=== PATIENT | male | born 1965 | race Caucasian/White ===

== ENCOUNTER 2018-04-13 16:38 | Inpatient (IN) | payer OTHER ==
[2018-04-13 20:27] VITALS: BMI 23.1
--- NOTE | 2018-04-13 21:01 | HP ---
COWS - Scale Resting Pulse: 0= [place] 80 or Below Sweatin=Flushed/Facial Moisture Restless Observation: 1= Difficult to Sit Still Pupil Size: 0= Normal to Room Light Bone or Joint Aches: 2= Severe Diffuse Aches Runny Nose/ Eye Tearin= Nasal Congestion GI Upset > 30mins: 1= Stomach Cramp Tremor Observation: 2= Slight Tremor Visible Yawning Observation: 1= 1-2x During Session Anxiety or Irritability: 4=Extreme Anxiety Goose Flesh Skin: 0=Smooth Skin COWS Score: 14 CIWA Score - CIWA Score Nausea/Vomitin-Mild Nausea/No Vomiting Muscle Tremors: 3 Anxiety: 2 Agitation: 3 Paroxysmal Sweats: 1-Minimal Palms Moist Orientation: 0-Oriented Tacttile Disturbances: 0-None Auditory Disturbances: 0-None Visual Disturbances: 0-None Headache: 0-None Present CIWA-Ar Total Score: 10 Admission ROS S - HPI Chief Complaint: Heroin withdrawal symptoms Allergies/Adverse Reactions: Allergies Allergy/AdvReac Type Severity Reaction Status Date / Time No Known Allergies Allergy Verified 04/13/18 20:29 History of Present Illness: 52 years old male with 3 years history of heroin dependence is seeking admission to detox. Patient reports that this is his first admission to [facility]. He reports 8 months of sobriety. Patient has medical history of depression and anxiety. He deenies suicide attempt and suicidal ideation at this time. Exam Limitations: No Limitations - Ebola screening Have you traveled outside of the country in the last 21 days: No (N) Have you had contact with anyone from an Ebola affected area: No Have you been sick,other than usual withdrawal symptoms: No Do you have a fever: No - Review of Systems Constitutional: Chills, Loss of Appetite, Malaise, Night Sweats, Changes in sleep EENT: reports: Nose Congestion Respiratory: reports: No Symptoms reported Cardiac: reports: No Symptoms Reported GI: reports: Poor Appetite, Poor Fluid Intake, Abdominal cramping : reports: No Symptoms Reported Musculoskeletal: reports: Back Pain, Joint Pain, Muscle Pain, Muscle Weakness Integumentary: reports: Dryness Neuro: reports: Tremors Endocrine: reports: No Symptoms Reported Psychiatric: reports: Mood/Affect Appropiate, Orientated x3 Other Systems: Reviewed and Negative Patient History - Patient Medical History Hx Anemia: No Hx Asthma: No Hx Chronic Obstructive Pulmonary Disease (COPD): No Hx Cancer: No Hx Cardiac Disorders: No Hx Congestive Heart Failure: No Hx Hypertension: No Hx Hypercholesterolemia: No Hx Pacemaker: No HX Cerebrovascular Accident: No Hx Seizures: No Hx Diabetes: No Hx Gastrointestinal Disorders: No Hx Sexually Transmitted Disorders: No Hx Renal Disease (ESRD): No Hx Thyroid Disease: No Hx Human Immunodeficiency Virus (HIV): No (Negative 2018) Hx Hepatitis C: No Hx Depression: Yes Hx Suicide Attempt: No (Denies suicide cattempt and suicidal ideation at this time) Hx Bipolar Disorder: Yes (Zanax, Seroquel, ) Hx Schizophrenia: No Other Medical History: Anxiety - Not on medication - Patient Surgical History Past Surgical History: No - PPD History Previous Implant?: No Documented Results: Negative w/proof Implanted On Prior [facility] Admission?: No - Reproductive History Patient is a Female of Child Bearing Age (11 -55 yrs old): No (MALE) - Smoking Cessation Smoking history: Current every day smoker Have you smoked in the past 12 months: Yes Aproximately how many cigarettes per day: 20 Hx Chewing Tobacco Use: No Initiated information on smoking cessation: Yes 'Breaking Loose' booklet given: 04/13/18 - Substance & Tx. History Hx Alcohol Use: No Hx Substance Use: Yes Substance Use Type: Heroin, Marijuana Hx Substance Use Treatment: No - Substances Abused Heroin Route: Injection Frequency: Daily Amount used: 1 BUNDLE Age of first use: 49 Date of Last Use: 04/13/18 Family Disease History - Family Disease History Family Disease History: CA: Father (Stomach Ca) Admission Physical Exam S - Vital Signs Vital Signs: Vital Signs - 24 hr 04/13/18 19:27 Temperature 97.0 F L Pulse Rate 60 Respiratory 18 Rate Blood Pressure 150/72 - Physical General Appearance: Yes: Moderate Distress, Tremorous, Irritable, Sweating, Anxious HEENTM: Yes: EOMI, Normal ENT Inspection, Normal Voice, LORI Respiratory: Yes: Lungs Clear, Normal Breath Sounds, No Respiratory Distress Neck: Yes: Supple Breast: Yes: Breast Exam Deferred Cardiology: Yes: Regular Rhythm, Regular Rate Abdominal: Yes: Normal Bowel Sounds Genitourinary: Yes: Within Normal Limits Back: Yes: Normal Inspection Musculoskeletal: Yes: Back pain, Muscle Pain, Muscle weakness Extremities: Yes: Tremors Neurological: Yes: Normal Mood/Affect Integumentary: Yes: Warm Lymphatic: Yes: Within Normal Limits - Diagnostic (1) Opioid dependence with withdrawal Current Visit: Yes Status: Chronic (2) Anxiety Current Visit: Yes Status: Chronic (3) Depression Current Visit: Yes Status: Chronic Qualifiers: Depression Type: unspecified Qualified Code(s): F32.9 - Major depressive disorder, single episode, unspecified (4) Nicotine dependence Current Visit: Yes Status: Chronic Cleared for Admission [facility] - Detox or Rehab [facility] Level of Care: Medically Managed Detox Regimen/Protocol: Methadone/Valium [facility] Breath Alcohol Content Breath Alcohol Content: 0 Urine Drug Screen - Results Drug Screen Negative: No Urine Drug Screen Results: THC-Marijuana, OPI-Opiates, BAR-Barbiturates, BZO- Benzodiazepines, OXY-Oxycodone, FEN-Fentanyl
[2018-04-13] MEDS ORDERED: NICOTINE POLACRILEX 2 MG GUM BC PRN (21:10)
[2018-04-13] MEDS ORDERED: MENTHOL/PHENOL 1 EACH UD MM PRN (21:10)
[2018-04-13] MEDS ORDERED: MAG HYDROX/AL HYDROX/SIMETH 30 ML UNIT-DOSE CUP PO PRN (21:10)
[2018-04-13] MEDS ORDERED: METHADONE HCL 10 MG TABLET (FOR DETOX USE ONLY) PO ONE ×4 (21:10→23:00)
[2018-04-13] MEDS ORDERED: MAGNESIUM HYDROX 2400MG/30ML ORAL SUSPENSION 30 ML CUP PO PRN (21:10)
[2018-04-13] MEDS ORDERED: guaiFENesin/D-METHORPHAN HB 10 ML UNIT-DOSE CUPS PO PRN (21:10)
[2018-04-13] MEDS ORDERED: ACETAMINOPHEN 325 MG TABLET (FP) PO PRN (21:10)
[2018-04-13] MEDS ORDERED: LOPERAMIDE HCL 2 MG CAPSULE PO PRN (21:10)
[2018-04-13] MEDS ORDERED: MAGNESIUM CITRATE 300 ML BOTTLE PO PRN (21:10)
[2018-04-13] MEDS ORDERED: diazePAM 5 MG TABLET PO PRN (21:22)
[2018-04-13] MEDS ORDERED: diazePAM 5 MG TABLET PO ONE (21:22)
[2018-04-13] MEDS ORDERED: MELATONIN 5 MG TABLETS PO PRN (22:00)
[2018-04-13] MEDS: THIAMINE HCL 100 MG TABLET (FP) PO SCH (23:20)
[2018-04-13] MEDS: diazePAM 5 MG TABLET PO SCH (23:27)
[2018-04-14] MEDS: diazePAM 5 MG TABLET PO SCH ×3 (07:00→22:07)
[2018-04-14] MEDS ORDERED: METHADONE HCL 10 MG TABLET (FOR DETOX USE ONLY) PO SCH (10:00)
[2018-04-14] MEDS ORDERED: METHADONE HCL 10 MG TABLET (FOR DETOX USE ONLY) PO ONE (10:00)
[2018-04-14] MEDS: diazePAM 5 MG TABLET PO PRN ×2 (10:34→17:42)
[2018-04-14] MEDS: PRENATAL VITAMINS W/ FOLIC ACID TABLET (FP) PO SCH (10:34)
[2018-04-14] MEDS: NICOTINE 14 MG/24 HOURS TOPICAL PATCH TD SCH (10:35)
[2018-04-14 10:47] LABS: HEMATOCRIT 39.3 % (35.4-49); HEMOGLOBIN 12.1 GM/dL (11.7-16.9); MCH 21.8 pg (25.7-33.7); MCHC 30.8 g/dl (32.0-35.9); MEAN CELL VOLUME 70.7 fl (80-96); MEAN PLT VOLUME 8.8 fl (7.5-11.1); PLATELET COUNT 274 K/MM3 (134-434); RBC 5.56 M/mm3 (4.00-5.60); RDW 15.4 % (11.9-15.9); WHITE BLOOD COUNT 11.9 K/mm3 (4.0-10.0)
--- NOTE | 2018-04-14 10:59 | EKG ---
Test Reason : Blood Pressure : / mmHG Vent. Rate : 061 BPM Atrial Rate : 061 BPM P-R Int : 136 ms QRS Dur : 088 ms QT Int : 428 ms P-R-T Axes : 077 078 057 degrees QTc Int : 430 ms NORMAL SINUS RHYTHM NORMAL ECG NO PREVIOUS ECGS AVAILABLE Confirmed by MD ALY, CAROL ([id number]) on 04/14/2018 10:59:36 AM Referred By: Confirmed By:CAROL LU MD
[2018-04-14 11:37] LABS: ALBUMIN 3.2 g/dl (3.4-5.0); ALK PHOS 89 U/L (45-117); ANION GAP 12 MMOL/L (8-16); BILIRUBIN,TOTAL 0.4 mg/dL (0.2-1); BLOOD UREA NITROGEN 15 mg/dL (7-18); CALCIUM 9.3 mg/dL (8.5-10.1); CHLORIDE 104 mmol/L (98-107); CO2 23 mmol/L (21-32); CREATININE 0.8 mg/dL (0.55-1.3); GLUCOSE,RANDOM 92 mg/dL (74-106); POTASSIUM 3.9 mmol/L (3.5-5.1); SGOT/AST 16 U/L (15-37); SGPT/ALT 20 U/L (13-61); SODIUM 139 mmol/L (136-145); TOT PROT 7.8 g/dl (6.4-8.2)
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
--- NOTE | 2018-04-14 17:23 | PN ---
[facility] CIWA - CIWA Score Nausea/Vomitin-Mild Nausea/No Vomiting Muscle Tremors: 3 Anxiety: 4-Mod. Anxious/Guarded Agitation: 3 Paroxysmal Sweats: 1-Minimal Palms Moist Orientation: 0-Oriented Tacttile Disturbances: 0-None Auditory Disturbances: 0-None Visual Disturbances: 0-None Headache: 0-None Present CIWA-Ar Total Score: 12 [facility] COWS - Scale Resting Pulse: 0= [place] 80 or Below Sweatin= Chills/Flushing Restless Observation: 1= Difficult to Sit Still Pupil Size: 0= Normal to Room Light Bone or Joint Aches: 2= Severe Diffuse Aches Runny Nose/ Eye Tearin= Nasal Congestion GI Upset > 30mins: 2= Nausea/Diarrhea Tremor Observation of Outstretched Hands: 2= Slight Tremor Visible Yawning Observation: 1= 1-2x During Session Anxiety or Irritability: 2=Irritable/Anxious Goose Flesh Skin: 0=Smooth Skin COWS Score: 12 [facility] Progress Note (SOAP) Subjective: body ache tremor trouble sleep at night anxiety Objective: 04/14/18 17:23 Vital Signs Temperature 97.7 F 04/14/18 12:56 Pulse Rate 58 L 04/14/18 12:56 Respiratory Rate 18 04/14/18 12:56 Blood Pressure 140/84 04/14/18 12:56 O2 Sat by Pulse Oximetry (%) Laboratory Last Values WBC 11.9 K/mm3 (4.0-10.0) H 04/14/18 07:00 RBC 5.56 M/mm3 (4.00-5.60) 04/14/18 07:00 Hgb 12.1 GM/dL (11.7-16.9) 04/14/18 07:00 Hct 39.3 % (35.4-49) 04/14/18 07:00 MCV 70.7 fl (80-96) L 04/14/18 07:00 MCH 21.8 pg (25.7-33.7) L 04/14/18 07:00 MCHC 30.8 g/dl (32.0-35.9) L 04/14/18 07:00 RDW 15.4 % (11.9-15.9) 04/14/18 07:00 Plt Count 274 K/MM3 (134-434) 04/14/18 07:00 MPV 8.8 fl (7.5-11.1) 04/14/18 07:00 Sodium 139 mmol/L (136-145) 04/14/18 07:00 Potassium 3.9 mmol/L (3.5-5.1) 04/14/18 07:00 Chloride 104 mmol/L (98-107) 04/14/18 07:00 Carbon Dioxide 23 mmol/L (21-32) 04/14/18 07:00 Anion Gap 12 MMOL/L (8-16) 04/14/18 07:00 BUN 15 mg/dL (7-18) 04/14/18 07:00 Creatinine 0.8 mg/dL (0.55-1.3) 04/14/18 07:00 Creat Clearance w eGFR > 60 (>60) 04/14/18 07:00 Random Glucose 92 mg/dL (74-106) 04/14/18 07:00 Calcium 9.3 mg/dL (8.5-10.1) 04/14/18 07:00 Total Bilirubin 0.4 mg/dL (0.2-1) 04/14/18 07:00 AST 16 U/L (15-37) 04/14/18 07:00 ALT 20 U/L (13-61) 04/14/18 07:00 Alkaline Phosphatase 89 U/L (45-117) 04/14/18 07:00 Total Protein 7.8 g/dl (6.4-8.2) 04/14/18 07:00 Albumin 3.2 g/dl (3.4-5.0) L 04/14/18 07:00 RPR Titer Nonreactive (NONREACTIVE) 04/14/18 07:00 lab note Assessment: 04/14/18 17:23 withdrawal sx Plan: continue detox
[2018-04-14] MEDS ORDERED: QUEtiapine FUMARATE 200 MG TABLET PO SCH (22:00)
[2018-04-14] MEDS ORDERED: QUEtiapine FUMARATE 50 MG TABLET PO SCH (22:00)
[2018-04-14] MEDS: THIAMINE HCL 100 MG TABLET (FP) PO SCH (22:07)
[2018-04-15] MEDS: diazePAM 5 MG TABLET PO PRN ×2 (06:23→14:30)
[2018-04-15] MEDS ORDERED: METHADONE HCL 5 MG TABLET (FOR DETOX USE ONLY) PO ONE (10:00)
[2018-04-15] MEDS: METHADONE HCL 5 MG TABLET (FOR DETOX USE ONLY) PO SCH (10:16)
[2018-04-15] MEDS: diazePAM 5 MG TABLET PO SCH ×2 (10:16→22:07)
[2018-04-15] MEDS: PRENATAL VITAMINS W/ FOLIC ACID TABLET (FP) PO SCH (10:17)
[2018-04-15] MEDS: NICOTINE 14 MG/24 HOURS TOPICAL PATCH TD SCH (10:17)
--- NOTE | 2018-04-15 11:52 | PN ---
[facility] CIWA - CIWA Score Nausea/Vomitin-Mild Nausea/No Vomiting Muscle Tremors: 3 Anxiety: 4-Mod. Anxious/Guarded Agitation: 3 Paroxysmal Sweats: 1-Minimal Palms Moist Orientation: 0-Oriented Tacttile Disturbances: 0-None Auditory Disturbances: 0-None Visual Disturbances: 0-None Headache: 0-None Present CIWA-Ar Total Score: 12 S COWS - Scale Resting Pulse: 0= [place] 80 or Below Sweatin= Chills/Flushing Restless Observation: 1= Difficult to Sit Still Pupil Size: 0= Normal to Room Light Bone or Joint Aches: 2= Severe Diffuse Aches Runny Nose/ Eye Tearin= Nasal Congestion GI Upset > 30mins: 2= Nausea/Diarrhea Tremor Observation of Outstretched Hands: 1= Tremor [place], Not Seen Yawning Observation: 1= 1-2x During Session Anxiety or Irritability: 2=Irritable/Anxious Goose Flesh Skin: 0=Smooth Skin COWS Score: 11 [facility] Progress Note (SOAP) Subjective: sweat tremor hot and cold body aches trouble sleep at night Objective: 04/15/18 11:53 Vital Signs Temperature 97.9 F 04/15/18 09:27 Pulse Rate 57 L 04/15/18 09:27 Respiratory Rate 16 04/15/18 09:27 Blood Pressure 103/55 L 04/15/18 09:27 O2 Sat by Pulse Oximetry (%) Laboratory Last Values WBC 11.9 K/mm3 (4.0-10.0) H 04/14/18 07:00 RBC 5.56 M/mm3 (4.00-5.60) 04/14/18 07:00 Hgb 12.1 GM/dL (11.7-16.9) 04/14/18 07:00 Hct 39.3 % (35.4-49) 04/14/18 07:00 MCV 70.7 fl (80-96) L 04/14/18 07:00 MCH 21.8 pg (25.7-33.7) L 04/14/18 07:00 MCHC 30.8 g/dl (32.0-35.9) L 04/14/18 07:00 RDW 15.4 % (11.9-15.9) 04/14/18 07:00 Plt Count 274 K/MM3 (134-434) 04/14/18 07:00 MPV 8.8 fl (7.5-11.1) 04/14/18 07:00 Sodium 139 mmol/L (136-145) 04/14/18 07:00 Potassium 3.9 mmol/L (3.5-5.1) 04/14/18 07:00 Chloride 104 mmol/L (98-107) 04/14/18 07:00 Carbon Dioxide 23 mmol/L (21-32) 04/14/18 07:00 Anion Gap 12 MMOL/L (8-16) 04/14/18 07:00 BUN 15 mg/dL (7-18) 04/14/18 07:00 Creatinine 0.8 mg/dL (0.55-1.3) 04/14/18 07:00 Creat Clearance w eGFR > 60 (>60) 04/14/18 07:00 Random Glucose 92 mg/dL (74-106) 04/14/18 07:00 Calcium 9.3 mg/dL (8.5-10.1) 04/14/18 07:00 Total Bilirubin 0.4 mg/dL (0.2-1) 04/14/18 07:00 AST 16 U/L (15-37) 04/14/18 07:00 ALT 20 U/L (13-61) 04/14/18 07:00 Alkaline Phosphatase 89 U/L (45-117) 04/14/18 07:00 Total Protein 7.8 g/dl (6.4-8.2) 04/14/18 07:00 Albumin 3.2 g/dl (3.4-5.0) L 04/14/18 07:00 RPR Titer Nonreactive (NONREACTIVE) 04/14/18 07:00 lab noted Assessment: 04/15/18 11:54 alcohol and opiate withdrawal sx Plan: continue alcohol and opiate detox
[2018-04-15] MEDS: P-EPHED 60MG/TRIPROLIDI 2.5MG TABLET PO PRN ×2 (14:30→22:11)
[2018-04-15] MEDS: IBUPROFEN 400 MG TABLET (FP) PO PRN ×2 (14:33→22:11)
--- NOTE | 2018-04-15 15:40 | PN ---
[facility] Progress Note Note: Psychiatric nurse practitioner note: Patient able to accept seroquel 150mg last night. He is currently prescribed Seroquel 300mg qhs. No complaints of adverse effects. No dizziness or oversedated noted. Mr. Devine continues to reports poor sleep. Will increase seroquel to 200mg qhs. Verbal consent given.
[2018-04-15] MEDS ORDERED: QUEtiapine FUMARATE 200 MG TABLET PO SCH (22:00)
[2018-04-15] MEDS: THIAMINE HCL 100 MG TABLET (FP) PO SCH (22:07)
[2018-04-16] MEDS ORDERED: METHADONE HCL 5 MG TABLET (FOR DETOX USE ONLY) PO ONE (10:00)
[2018-04-16] MEDS: NICOTINE 14 MG/24 HOURS TOPICAL PATCH TD SCH (10:31)
[2018-04-16] MEDS: PRENATAL VITAMINS W/ FOLIC ACID TABLET (FP) PO SCH (10:31)
[2018-04-16] MEDS: diazePAM 5 MG TABLET PO SCH ×2 (10:31→22:09)
[2018-04-16] MEDS: METHADONE HCL 5 MG TABLET (FOR DETOX USE ONLY) PO SCH (10:31)
[2018-04-16] MEDS: IBUPROFEN 400 MG TABLET (FP) PO PRN (10:32)
--- NOTE | 2018-04-16 13:15 | PN ---
[facility] COWS - Scale Resting Pulse: 0= [place] 80 or Below Sweatin= No chills or Flushing Restless Observation: 0= Sits Still Pupil Size: 1= Pupils >than Normal Bone or Joint Aches: 0= None Runny Nose/ Eye Tearin= None GI Upset > 30mins: 0= None Tremor Observation of Outstretched Hands: 0= None Yawning Observation: 0= None Anxiety or Irritability: 0= None Goose Flesh Skin: 0=Smooth Skin COWS Score: 1 [facility] Progress Note (SOAP) Subjective: Patient tolerating detox well. In no acute distress. Objective: 04/16/18 13:12 Laboratory Tests 04/14/18 04/14/18 04/14/18 07:00 07:00 07:00 WBC 11.9 H RBC 5.56 Hgb 12.1 Hct 39.3 MCV 70.7 L MCH 21.8 L MCHC 30.8 L RDW 15.4 Plt Count 274 MPV 8.8 Sodium 139 Potassium 3.9 Chloride 104 Carbon Dioxide 23 Anion Gap 12 BUN 15 Creatinine 0.8 Creat Clearance w eGFR > 60 Random Glucose 92 Calcium 9.3 Total Bilirubin 0.4 AST 16 ALT 20 Alkaline Phosphatase 89 Total Protein 7.8 Albumin 3.2 L RPR Titer Nonreactive Vital Signs Temperature 97.9 F 04/16/18 08:59 Pulse Rate 53 L 04/16/18 08:59 Respiratory Rate 18 04/16/18 08:59 Blood Pressure 102/57 L 04/16/18 08:59 O2 Sat by Pulse Oximetry (%) pe: alert and oriented skin warm and dry car s1s2 resp cta bl neuro +PERRLA, pupils slightly enlarged, eoms intact bl Assessment: 04/16/18 13:14 withdrawal syndrome Plan: continue detox as ordered encourage oral fluids continue to monitor
[2018-04-16] MEDS: diazePAM 5 MG TABLET PO PRN (14:50)
[2018-04-16] MEDS: LIDOCAINE 5% TOPICAL PATCH TP SCH (14:54)
[2018-04-16] MEDS: P-EPHED 60MG/TRIPROLIDI 2.5MG TABLET PO PRN (15:04)
--- NOTE | 2018-04-16 16:29 | PN ---
[facility] Progress Note Note: Psychiatric nurse practitioner note: Chart reviewed. Pt. is prescribed seroquel 300mg qhs by his outpatient provider. He accepted seroquel 200 mg last night. No adverse effects reports. Patient is c/o poor sleep. Seroquel increased to 250mg. Verbal consent given.
[2018-04-16] MEDS ORDERED: QUEtiapine FUMARATE 200 MG TABLET ONE (21:15)
[2018-04-16] MEDS ORDERED: QUEtiapine FUMARATE 50 MG TABLET ONE (21:15)
[2018-04-16] MEDS ORDERED: QUEtiapine FUMARATE 200 MG TABLET PO SCH (22:00)
[2018-04-16] MEDS ORDERED: QUETIAPINE FUMARATE 200 MG, QUETIAPINE FUMARATE 50 MG PO SCH (22:00)
[2018-04-16] MEDS ORDERED: LIDOCAINE PATCH REMOVAL MC SCH (22:00)
[2018-04-16] MEDS: THIAMINE HCL 100 MG TABLET (FP) PO SCH (22:10)
[2018-04-17 05:48] VITALS: TEMP 97.3
[2018-04-17 09:14] VITALS: BP 98/55; PULSE 61
[2018-04-17] MEDS: PRENATAL VITAMINS W/ FOLIC ACID TABLET (FP) PO SCH (09:36)
[2018-04-17] MEDS: LIDOCAINE 5% TOPICAL PATCH TP SCH (09:37)
[2018-04-17] MEDS: NICOTINE 14 MG/24 HOURS TOPICAL PATCH TD SCH (09:38)
[2018-04-17] MEDS ORDERED: diazePAM 5 MG TABLET PO SCH (10:00)
[2018-04-17] MEDS ORDERED: METHADONE HCL 10 MG TABLET (FOR DETOX USE ONLY) PO SCH (10:00)
[2018-04-17] MEDS ORDERED: METHADONE HCL 10 MG TABLET (FOR DETOX USE ONLY) PO ONE (10:00)
--- NOTE | 2018-04-17 10:09 | PN ---
S Progress Note Note: pt states he is feeling fine and no s/s withdrawals. pt will be d/c today pt will be going home.
--- NOTE | 2018-04-17 10:12 | DS ---
[facility] Detox Discharge Summary Admission Date: 04/13/18 Discharge Date: 04/17/18 - History Present History: Opioid Dependence - Physical Exam Results Vital Signs: Vital Signs Temperature 97.3 F L 04/17/18 09:14 Pulse Rate 61 04/17/18 09:14 Respiratory Rate 04/17/18 09:14 Blood Pressure 98/55 L 04/17/18 09:14 O2 Sat by Pulse Oximetry (%) - Treatment Hospital Course: Detox Protocol Followed, Detoxed Safely, Responded well, Discharged Condition Good, Rehab Referral Accepted - Medication Discharge Medications: Ambulatory Orders Alprazolam [Xanax] 1 mg PO PRN 04/13/18 Pregabalin [Lyrica] 100 mg PO TID 04/13/18 Quetiapine Fumarate [Seroquel] 300 mg PO HS 04/13/18 - Diagnosis (1) Opioid dependence with withdrawal Current Visit: Yes Status: Chronic (2) Substance induced mood disorder Current Visit: Yes Status: Acute (3) Anxiety Current Visit: Yes Status: Chronic (4) Depression Current Visit: Yes Status: Chronic Qualifiers: Depression Type: unspecified Qualified Code(s): F32.9 - Major depressive disorder, single episode, unspecified (5) Mood disorder Current Visit: Yes Status: Chronic (6) Nicotine dependence Current Visit: Yes Status: Chronic Qualifiers: Nicotine product type: cigarettes Substance use status: uncomplicated Qualified Code(s): F17.210 - Nicotine dependence, cigarettes, uncomplicated (7) PTSD (post-traumatic stress disorder) Current Visit: Yes Status: Chronic - AMA Did Patient Leave Against Medical Advice: No
[2018-04-18] MEDS ORDERED: METHADONE HCL 5 MG TABLET (FOR DETOX USE ONLY) PO ONE (06:00)
[2018-04-18] MEDS ORDERED: METHADONE HCL 5 MG TABLET (FOR DETOX USE ONLY) PO SCH (06:00)
== END 2018-04-17 10:11 | disposition home or self-care (01) | DRG 773 ==
LOC: YASAS 16:38 → Y6N 21:26
PROC: HZ2ZZZZ Detoxification Services for Substance Abuse Treatment (ICD-10-PCS; principal; 2018-04-13)
DX: F11.23 Opioid dependence with withdrawal (principal); F10.230 Alcohol dependence with withdrawal, uncomplicated; F17.210 Nicotine dependence, cigarettes, uncomplicated; F31.9 Bipolar disorder, unspecified; F19.24 Other psychoactive substance dependence with psychoactive substance-induced mood disorder; F39 Unspecified mood [affective] disorder; F32.9 Major depressive disorder, single episode, unspecified; F43.10 Post-traumatic stress disorder, unspecified; F41.9 Anxiety disorder, unspecified
CPT/HCPCS: 36415; 80053; 85027; 86593; 93005; 93010

== ENCOUNTER 2018-06-01 16:16 | Inpatient (IN) | payer OTHER ==
[2018-06-01 17:41] VITALS: BMI 23.7
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
[2018-06-01] MEDS ORDERED: IBUPROFEN 400 MG TABLET (FP) PO PRN (18:34)
[2018-06-01] MEDS ORDERED: P-EPHED 60MG/TRIPROLIDI 2.5MG TABLET PO PRN (18:34)
[2018-06-01] MEDS ORDERED: MAGNESIUM CITRATE 300 ML BOTTLE PO PRN (18:34)
[2018-06-01] MEDS ORDERED: MAGNESIUM HYDROX 2400MG/30ML ORAL SUSPENSION 30 ML CUP PO PRN (18:34)
[2018-06-01] MEDS ORDERED: MENTHOL/PHENOL 1 EACH UD MM PRN (18:34)
[2018-06-01] MEDS ORDERED: guaiFENesin/D-METHORPHAN HB 10 ML UNIT-DOSE CUPS PO PRN (18:34)
[2018-06-01] MEDS ORDERED: MAG HYDROX/AL HYDROX/SIMETH 30 ML UNIT-DOSE CUP PO PRN (18:34)
[2018-06-01] MEDS ORDERED: ACETAMINOPHEN 325 MG TABLET (FP) PO PRN (18:34)
[2018-06-01] MEDS ORDERED: METHADONE HCL 10 MG TABLET (FOR DETOX USE ONLY) PO ONE ×2 (19:00→23:00)
[2018-06-01] MEDS: diazePAM 5 MG TABLET PO PRN (19:42)
[2018-06-01] MEDS ORDERED: MELATONIN 5 MG TABLETS PO PRN (22:00)
[2018-06-01] MEDS: THIAMINE HCL 100 MG TABLET (FP) PO SCH (22:07)
[2018-06-02] MEDS: diazePAM 5 MG TABLET PO PRN ×5 (05:30→23:00)
[2018-06-02] MEDS ORDERED: cloNIDine HCL 0.1 MG TABLET PO ONE (09:15)
[2018-06-02] MEDS ORDERED: BACLOFEN 10 MG TABLET (FP) PO ONE (09:15)
[2018-06-02 09:46] LABS: HEMOGLOBIN 12.5 GM/dL (11.7-16.9); MCH 21.4 pg (25.7-33.7); MCHC 30.5 g/dl (32.0-35.9); MEAN CELL VOLUME 70.1 fl (80-96); MEAN PLT VOLUME 8.5 fl (7.5-11.1); PLATELET COUNT 285 K/MM3 (134-434); RBC 5.85 M/mm3 (4.00-5.60); WHITE BLOOD COUNT 10.6 K/mm3 (4.0-10.0)
--- NOTE | 2018-06-02 09:55 | PN ---
S COWS - Scale Resting Pulse: 0= OR 80 or Below Sweatin= Chills/Flushing Restless Observation: 1= Difficult to Sit Still Pupil Size: 1= Pupils >than Normal Bone or Joint Aches: 1= Mild Discomfort Runny Nose/ Eye Tearin= Nasal Congestion GI Upset > 30mins: 1= Stomach Cramp Tremor Observation of Outstretched Hands: 1= Tremor [place], Not Seen Yawning Observation: 1= 1-2x During Session Anxiety or Irritability: 1=Feels Anxious/Irritable Goose Flesh Skin: 3=Piloerection COWS Score: 12 S Progress Note (SOAP) Subjective: joints pain body aches sweat tremor anxiety restlessness patient taking xanax three times daily received 30 days supply 05/29/18 Objective: 06/02/18 10:00 Vital Signs Temperature 98.2 F 06/02/18 09:06 Pulse Rate 55 L 06/02/18 09:06 Respiratory Rate 18 06/02/18 09:06 Blood Pressure 122/61 06/02/18 09:06 O2 Sat by Pulse Oximetry (%) Laboratory Last Values WBC 10.6 K/mm3 (4.0-10.0) H 06/02/18 07:00 RBC 5.85 M/mm3 (4.00-5.60) H 06/02/18 07:00 Hgb 12.5 GM/dL (11.7-16.9) 06/02/18 07:00 Hct 41.0 % (35.4-49) 06/02/18 07:00 MCV 70.1 fl (80-96) L 06/02/18 07:00 MCH 21.4 pg (25.7-33.7) L 06/02/18 07:00 MCHC 30.5 g/dl (32.0-35.9) L 06/02/18 07:00 RDW 16.0 % (11.9-15.9) H 06/02/18 07:00 Plt Count 285 K/MM3 (134-434) 06/02/18 07:00 MPV 8.5 fl (7.5-11.1) 06/02/18 07:00 Sodium 140 mmol/L (136-145) 06/02/18 07:00 Potassium 4.2 mmol/L (3.5-5.1) 06/02/18 07:00 Chloride 104 mmol/L (98-107) 06/02/18 07:00 Carbon Dioxide 25 mmol/L (21-32) 06/02/18 07:00 Anion Gap 10 MMOL/L (8-16) 06/02/18 07:00 BUN 14 mg/dL (7-18) 06/02/18 07:00 Creatinine 0.8 mg/dL (0.55-1.3) 06/02/18 07:00 Creat Clearance w eGFR > 60 (>60) 06/02/18 07:00 Random Glucose 86 mg/dL (74-106) 06/02/18 07:00 Calcium 8.8 mg/dL (8.5-10.1) 06/02/18 07:00 Total Bilirubin 0.5 mg/dL (0.2-1) 06/02/18 07:00 AST 10 U/L (15-37) L 06/02/18 07:00 ALT 19 U/L (13-61) 06/02/18 07:00 Alkaline Phosphatase 95 U/L (45-117) 06/02/18 07:00 Total Protein 7.6 g/dl (6.4-8.2) 06/02/18 07:00 Albumin 3.2 g/dl (3.4-5.0) L 06/02/18 07:00 lab noted Assessment: 06/02/18 10:00 withdrawal sx muscle aches Plan: continue detox baclofen 10 mg x 1 clonidine 0.1 mg x 1
[2018-06-02 09:59] LABS: ALBUMIN 3.2 g/dl (3.4-5.0); ALK PHOS 95 U/L (45-117); ANION GAP 10 MMOL/L (8-16); BILIRUBIN,TOTAL 0.5 mg/dL (0.2-1); BLOOD UREA NITROGEN 14 mg/dL (7-18); CALCIUM 8.8 mg/dL (8.5-10.1); CHLORIDE 104 mmol/L (98-107); CO2 25 mmol/L (21-32); CREATININE 0.8 mg/dL (0.55-1.3); GLUCOSE,RANDOM 86 mg/dL (74-106); POTASSIUM 4.2 mmol/L (3.5-5.1); SGOT/AST 10 U/L (15-37); SGPT/ALT 19 U/L (13-61); SODIUM 140 mmol/L (136-145); TOT PROT 7.6 g/dl (6.4-8.2)
[2018-06-02] MEDS ORDERED: METHADONE HCL 10 MG TABLET (FOR DETOX USE ONLY) PO ONE (10:00)
[2018-06-02] MEDS: PRENATAL VITAMINS W/ FOLIC ACID TABLET (FP) PO SCH (10:19)
[2018-06-02] MEDS: NICOTINE 7 MG/24 HOURS TOPICAL PATCH TD SCH (10:19)
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
[2018-06-02] MEDS: QUEtiapine FUMARATE 300 MG TABLET PO SCH (21:18)
[2018-06-02] MEDS: THIAMINE HCL 100 MG TABLET (FP) PO SCH (21:18)
--- NOTE | 2018-06-03 09:01 | PN ---
BHS COWS - Scale Resting Pulse: 0= [place] 80 or Below Sweatin= No chills or Flushing (pt on methadone) Restless Observation: 0= Sits Still Pupil Size: 0= Normal to Room Light Bone or Joint Aches: 0= None Runny Nose/ Eye Tearin= None GI Upset > 30mins: 0= None Tremor Observation of Outstretched Hands: 0= None Yawning Observation: 0= None Anxiety or Irritability: 0= None Goose Flesh Skin: 0=Smooth Skin COWS Score: 0 BHS Progress Note (SOAP) Subjective: pt states he is feeling tired, but otherwise feeling fine with the detox protocol. Vital Signs - 24 hr 06/02/18 06/02/18 06/02/18 09:06 14:13 17:17 Temperature 98.2 F 98.4 F 99.3 F Pulse Rate 55 L 57 L 54 L Respiratory 18 18 16 Rate Blood Pressure 122/61 115/53 L 120/64 06/02/18 06/03/18 06/03/18 22:10 00:30 06:00 Temperature 97.7 F 97.5 F L Pulse Rate 52 L 50 L Respiratory 16 18 18 Rate Blood Pressure 131/74 128/69 VS good labs: Laboratory Tests 06/02/18 06/02/18 06/02/18 07:00 07:00 07:00 WBC 10.6 H RBC 5.85 H Hgb 12.5 Hct 41.0 MCV 70.1 L MCH 21.4 L MCHC 30.5 L RDW 16.0 H Plt Count 285 MPV 8.5 Sodium 140 Potassium 4.2 Chloride 104 Carbon Dioxide 25 Anion Gap 10 BUN 14 Creatinine 0.8 Creat Clearance w eGFR > 60 Random Glucose 86 Calcium 8.8 Total Bilirubin 0.5 AST 10 L ALT 19 Alkaline Phosphatase 95 Total Protein 7.6 Albumin 3.2 L RPR Titer Nonreactive nl h/H, wide RDW and low MCV- pt on vitamins a/p: Continue detox protocol for opioid withdrawal sx
[2018-06-03] MEDS: diazePAM 5 MG TABLET PO PRN ×3 (09:23→19:21)
[2018-06-03] MEDS ORDERED: METHADONE HCL 5 MG TABLET (FOR DETOX USE ONLY) PO ONE (10:00)
[2018-06-03] MEDS: PRENATAL VITAMINS W/ FOLIC ACID TABLET (FP) PO SCH (10:36)
[2018-06-03] MEDS: NICOTINE 7 MG/24 HOURS TOPICAL PATCH TD SCH (10:36)
[2018-06-03] MEDS: QUEtiapine FUMARATE 300 MG TABLET PO SCH (21:01)
[2018-06-03] MEDS: THIAMINE HCL 100 MG TABLET (FP) PO SCH (21:01)
[2018-06-04] MEDS ORDERED: METHADONE HCL 10 MG TABLET (FOR DETOX USE ONLY) PO ONE (10:00)
[2018-06-04] MEDS: NICOTINE 7 MG/24 HOURS TOPICAL PATCH TD SCH (10:11)
[2018-06-04] MEDS: diazePAM 5 MG TABLET PO PRN ×2 (10:11→15:06)
[2018-06-04] MEDS: PRENATAL VITAMINS W/ FOLIC ACID TABLET (FP) PO SCH (10:11)
--- NOTE | 2018-06-04 12:39 | PN ---
BHS Progress Note (SOAP) Subjective: Fatigue, Sweating. Objective: PATIENT A & O X 3. NO ACUTE DISTRESS. 06/04/18 12:37 Vital Signs Temperature 97.9 F 06/04/18 09:46 Pulse Rate 60 06/04/18 09:46 Respiratory Rate 17 06/04/18 09:46 Blood Pressure 119/65 06/04/18 09:46 O2 Sat by Pulse Oximetry (%) Laboratory Tests 06/02/18 06/02/18 06/02/18 07:00 07:00 07:00 WBC 10.6 H RBC 5.85 H Hgb 12.5 Hct 41.0 MCV 70.1 L MCH 21.4 L MCHC 30.5 L RDW 16.0 H Plt Count 285 MPV 8.5 Sodium 140 Potassium 4.2 Chloride 104 Carbon Dioxide 25 Anion Gap 10 BUN 14 Creatinine 0.8 Creat Clearance w eGFR > 60 Random Glucose 86 Calcium 8.8 Total Bilirubin 0.5 AST 10 L ALT 19 Alkaline Phosphatase 95 Total Protein 7.6 Albumin 3.2 L RPR Titer Nonreactive LABS NOTED. UA RESULTS PENDING. 06/04/18 12:38 Assessment: 06/04/18 12:38 WITHDRAWAL SYMPTOMS. Plan: CONTINUE DETOX. PATIENT REPORTS THAT HE IS TOLERATING CURRENT DETOX SYMPTOMS WELL. AT PATIENT'S REQUEST, CURRENT DETOX MEDICATION REGIMEN (METHADONE) MODIFIED SO THAT PATIENT MAY BE DISCHARGED TOMORROW, 06/05/2018.
[2018-06-04 16:38] LABS: URINE APPEARANCE CLEAR; URINE BILIRUBIN NEGATIVE (<2.0 mg/dL); URINE COLOR STRAW; URINE GLUCOSE (UA) NEGATIVE (NEGATIVE); URINE KETONE NEGATIVE (NEGATIVE); URINE LEUK ESTERASE NEGATIVE (NEGATIVE); URINE NITRITE NEGATIVE (NEGATIVE); URINE PROTEIN NEGATIVE (NEGATIVE); URINE UROBILINOGEN NEGATIVE mg/dL (0.2-1.0)
[2018-06-04] MEDS: QUEtiapine FUMARATE 300 MG TABLET PO SCH (21:03)
[2018-06-04] MEDS: THIAMINE HCL 100 MG TABLET (FP) PO SCH (21:03)
[2018-06-05] MEDS ORDERED: METHADONE HCL 5 MG TABLET (FOR DETOX USE ONLY) PO ONE (06:00)
[2018-06-05 07:27] VITALS: BP 104/57; PULSE 63; TEMP 96.1
--- NOTE | 2018-06-05 09:21 | DS ---
[facility] Detox Discharge Summary Admission Date: 06/01/18 Discharge Date: 06/05/18 - History Present History: Opioid Dependence, Sedative Dependence - Physical Exam Results Vital Signs: Vital Signs Temperature 96.1 F L 06/05/18 07:27 Pulse Rate 63 06/05/18 07:27 Respiratory Rate 18 06/05/18 07:27 Blood Pressure 104/57 L 06/05/18 07:27 O2 Sat by Pulse Oximetry (%) - Treatment Hospital Course: Detox Protocol Followed, Detoxed Safely, Responded well, Discharged Condition Good, Rehab Referral Accepted - Medication Discharge Medications: Ambulatory Orders Alprazolam [Xanax] 1 mg PO TID 04/13/18 Pregabalin [Lyrica] 100 mg PO TID 04/13/18 Quetiapine Fumarate [Seroquel] 300 mg PO HS 04/13/18 - Diagnosis (1) Opioid dependence with withdrawal Status: Chronic (2) Sedative dependence with current use Status: Chronic (3) Substance induced mood disorder Status: Acute (4) Substance-induced sleep disorder Status: Acute (5) Anxiety Status: Chronic (6) Depression Status: Chronic Qualifiers: Depression Type: unspecified Qualified Code(s): F32.9 - Major depressive disorder, single episode, unspecified (7) Mood disorder Status: Chronic (8) Nicotine dependence Status: Chronic Qualifiers: Nicotine product type: cigarettes Substance use status: uncomplicated Qualified Code(s): F17.210 - Nicotine dependence, cigarettes, uncomplicated (9) PTSD (post-traumatic stress disorder) Status: Chronic - AMA Did Patient Leave Against Medical Advice: No (going home)
== END 2018-06-05 07:40 | disposition home or self-care (01) | DRG 773 ==
LOC: YASAS 16:16 → Y6N 18:38
PROC: HZ2ZZZZ Detoxification Services for Substance Abuse Treatment (ICD-10-PCS; principal; 2018-06-01)
DX: F11.23 Opioid dependence with withdrawal (principal); F13.20 Sedative, hypnotic or anxiolytic dependence, uncomplicated; F17.210 Nicotine dependence, cigarettes, uncomplicated; F19.24 Other psychoactive substance dependence with psychoactive substance-induced mood disorder; F19.282 Other psychoactive substance dependence with psychoactive substance-induced sleep disorder; F43.10 Post-traumatic stress disorder, unspecified; F39 Unspecified mood [affective] disorder; F41.9 Anxiety disorder, unspecified; F32.9 Major depressive disorder, single episode, unspecified
CPT/HCPCS: 36415; 80053; 81003; 85027; 86593; J0475; J0735

== ENCOUNTER 2018-08-11 18:44 | Emergency (ER) | payer OTHER ==
--- NOTE | 2018-08-11 18:52 | PDOC ---
Rapid Medical Evaluation Chief Complaint: Alcohol intoxication Time Seen by Provider: 08/11/18 18:51 Medical Evaluation: Allergies Allergy/AdvReac Type Severity Reaction Status Date / Time No Known Allergies Allergy Verified 04/13/18 20:29 08/11/18 18:51 I have performed a brief in person evaluation of this patient. The patient's CC: Heroin detox HPI: Pt is here for detox from heroin. Pt states that he last injected yesterday. PE: Skin: Clear Heart: RRR Lungs: Clear MS. moves all extremities without difficulty. Neuro: Alert and oriented Psch: appropriate affect The patient will proceed to the main ED for further evaluation. Discharge Disposition - Diagnosis Drug abuse and dependence - Referrals - Patient Instructions - Post Discharge Activity
[2018-08-11 18:56] VITALS: BMI 25.0
[2018-08-11] MEDS ORDERED: ONDANSETRON 4 MG/2 ML VIAL IVPUSH ONE (20:59)
[2018-08-11] MEDS ORDERED: SODIUM CHLORIDE 1,000 ML IV STA (20:59)
--- NOTE | 2018-08-11 20:59 | PDOC ---
History of Present Illness - General Chief Complaint: Alcohol intoxication Stated Complaint: INTOXICATION Time Seen by Provider: 08/11/18 18:51 History Source: Patient Past History - Past Medical History Allergies/Adverse Reactions: Allergies Allergy/AdvReac Type Severity Reaction Status Date / Time No Known Allergies Allergy Verified 04/13/18 20:29 Home Medications: Ambulatory Orders Alprazolam [Xanax] 1 mg PO TID 04/13/18 Pregabalin [Lyrica] 100 mg PO TID 04/13/18 Quetiapine Fumarate [Seroquel] 300 mg PO HS 04/13/18 Anemia: No Asthma: No Cancer: No Cardiac Disorders: No CVA: No COPD: No CHF: No Diabetes: No GI Disorders: No Disorders: No HTN: No Hypercholesterolemia: No Kidney Stones: No Seizures: No Thyroid Disease: No - Surgical History Abdominal Surgery: No Appendectomy: No Cardiac Surgery: No Cholecystectomy: No Lung Surgery: No Neurologic Surgery: Yes (spinal sx x2) Orthopedic Surgery: Yes (bilateral knees and shoulders sx) - Reproductive History Testicular Surgery: No - Immunization History Immunization Up to Date: Yes - Suicide/Smoking/Psychosocial Hx Smoking History: Never smoked Have you smoked in the past 12 months: Yes Number of Cigarettes Smoked Daily: 20 'Breaking Loose' booklet given: 04/13/18 Hx Alcohol Use: No Drug/Substance Use Hx: No Substance Use Type: Heroin, Marijuana Hx Substance Use Treatment: Yes Review of Systems - Review of Systems Constitutional: Yes: Malaise. No: Fever Respiratory: No: Cough, Shortness of Breath Cardiac (ROS): No: Chest Pain ABD/GI: Yes: Nausea. No: Vomiting, Abdominal cramping Neurological: No: Headache, Dizziness *Physical Exam - Vital Signs Last Vital Signs Temp Pulse Resp BP Pulse Ox 98.2 F 58 L 17 118/68 98 08/11/18 18:51 08/11/18 18:51 08/11/18 18:51 08/11/18 18:51 08/11/18 18:51 - Physical Exam General Appearance: Yes: Appropriately Dressed. No: Apparent Distress HEENT: positive: Normal Voice Neck: positive: Supple Respiratory/Chest: positive: Lungs Clear, Normal Breath Sounds. negative: Respiratory Distress Cardiovascular: positive: Regular Rate, S1, S2 Gastrointestinal/Abdominal: positive: Soft. negative: Tender Extremity: positive: Normal Inspection Integumentary: positive: Dry, Warm Neurologic: positive: Fully Oriented, Alert, Normal Mood/Affect Moderate Sedation - Procedure Monitoring Vital Signs: Procedure Monitoring Vital Signs Temperature 98.2 F 08/11/18 18:51 Pulse Rate 58 L 08/11/18 18:51 Respiratory Rate 17 08/11/18 18:51 Blood Pressure 118/68 08/11/18 18:51 O2 Sat by Pulse Oximetry (%) 98 08/11/18 18:51 Medical Decision Making - Medical Decision Making 08/11/18 20:59 52 yo M, undomiciled, polysubstance abuse, here requesting inpt detox. Last injected heroin yesterday per patient and now reports not feeling well and nauseous. Patient's last detox inpatient admission was 05/2018 at [facility]. Walked into facility 07/28/2018 for readmission but found to have Suboxone in his system and so was denied admission. Patient states last time he used Suboxone was a month ago. Patient stable and in no apparent distress. Will medically clear and discuss transfer with staff at [facility] *DC/Admit/Observation/Transfer Diagnosis at time of Disposition: Drug abuse and dependence - Referrals Referrals: Robbie Reeder [Primary Care Provider] - - Patient Instructions - Post Discharge Activity
--- NOTE | 2018-08-11 21:09 | PDOC ---
*Physical Exam - Vital Signs Last Vital Signs Temp Pulse Resp BP Pulse Ox 98.2 F 58 L 17 118/68 98 08/11/18 18:51 08/11/18 18:51 08/11/18 18:51 08/11/18 18:51 08/11/18 18:51 Medical Decision Making - Medical Decision Making 08/11/18 21:32 Patient seen by the advanced practice provider under my direct supervision. Ancillary testing reviewed as necessary. I agree with plan as outlined by the advanced practice provider. *DC/Admit/Observation/Transfer Diagnosis at time of Disposition: Drug abuse and dependence - Referrals Referrals: Robbie Reeder [Primary Care Provider] - - Patient Instructions - Post Discharge Activity
[2018-08-11] MEDS ORDERED: ONDANSETRON 4 MG/2 ML VIAL ONE (21:54)
[2018-08-11 23:13] LABS: ALBUMIN 3.6 g/dl (3.4-5.0); ALK PHOS 106 U/L (45-117); ANION GAP 6 MMOL/L (8-16); BILIRUBIN,TOTAL 0.4 mg/dL (0.2-1); BLOOD UREA NITROGEN 15 mg/dL (7-18); CALCIUM 8.8 mg/dL (8.5-10.1); CHLORIDE 106 mmol/L (98-107); CO2 27 mmol/L (21-32); CREATININE 0.8 mg/dL (0.55-1.3); GLUCOSE,RANDOM 108 mg/dL (74-106); SGOT/AST 25 U/L (15-37); SGPT/ALT 27 U/L (13-61); SODIUM 138 mmol/L (136-145)
[2018-08-12] MEDS ORDERED: METOCLOPRAMIDE HCL INJECTION 10 MG/2 ML VIAL IVPB ONE (00:21)
--- NOTE | 2018-08-12 00:37 | PDOC ---
*Physical Exam - Vital Signs Last Vital Signs Temp Pulse Resp BP Pulse Ox 98.2 F 58 L 17 118/68 98 08/11/18 18:51 08/11/18 18:51 08/11/18 18:51 08/11/18 18:51 08/11/18 18:51 - Physical Exam General Appearance: Yes: Appropriately Dressed ED Treatment Course - LABORATORY CBC & Chemistry Diagram: 08/11/18 21:48 08/11/18 21:48 - ADDITIONAL ORDERS Additional order review: Laboratory Results 08/11/18 21:48 Sodium 138 Potassium 4.0 Chloride 106 Carbon Dioxide 27 Anion Gap 6 L BUN 15 Creatinine 0.8 Creat Clearance w eGFR > 60 Random Glucose 108 H Calcium 8.8 Total Bilirubin 0.4 AST 25 ALT 27 Alkaline Phosphatase 106 Total Protein 8.0 Albumin 3.6 08/11/18 21:48 RBC Cancelled MCV Cancelled MCHC Cancelled RDW Cancelled MPV Cancelled Neutrophils % Cancelled Lymphocytes % Cancelled Monocytes % Cancelled Eosinophils % Cancelled Basophils % Cancelled - Medications Given in the ED: ED Medications Discontinued Medications Generic Name Dose Route Start Last Admin Trade Name Eleazarq PRN Reason Stop Dose Admin Sodium Chloride 1,000 mls @ 1,000 mls/hr 08/11/18 20:59 08/11/18 22:15 Normal Saline - IV 08/11/18 21:58 1,000 mls/hr ASDIR STA Administration Ondansetron HCl 4 mg 08/11/18 20:59 08/11/18 22:16 Zofran Injection IVPUSH 08/11/18 21:00 4 mg ONCE ONE Administration Medical Decision Making - Medical Decision Making 08/12/18 00:35 i spoke to [facility] detos MARY Gonzales. reports that patient cannot be admitted for detox due to active suboxone prescription. patient can be evaluated for rehab at 8 am tomorrow as a walk in. patient CBC was cancelled by lab. patient did not give utox. patient is insisting on leaving. will d/ c home. patient in no acute distress. walking around. *DC/Admit/Observation/Transfer Diagnosis at time of Disposition: Drug abuse and dependence - Discharge Dispostion Disposition: HOME - Referrals Referrals: Robbie Reeder [Primary Care Provider] - - Patient Instructions Printed Discharge Instructions: DI for Alcohol Abuse Additional Instructions: please refairn from using drugs and alcohol. patient go to [facility] rehab tomorrow at 8 am. - Post Discharge Activity
[2018-08-12] MEDS ORDERED: METOCLOPRAMIDE HCL 10 MG TABLET (FP) PO ONE ×2 (01:03→01:04)
[2018-08-12 01:27] VITALS: BP 142/86; PULSE 61; TEMP 98
--- NOTE | 2018-08-12 13:20 | EKG ---
Test Reason : Blood Pressure : / mmHG Vent. Rate : 055 BPM Atrial Rate : 055 BPM P-R Int : 136 ms QRS Dur : 092 ms QT Int : 468 ms P-R-T Axes : 072 081 060 degrees QTc Int : 447 ms SINUS BRADYCARDIA OTHERWISE NORMAL ECG WHEN COMPARED WITH ECG OF 13-APR-2018 22:38, NONSPECIFIC T WAVE ABNORMALITY NOW EVIDENT IN ANTERIOR LEADS Confirmed by RIAZ GALEANA, LEANDRA ([id number]) on 08/12/2018 1:20:01 PM Referred By: Confirmed By:LEANDRA MELLO MD
== END 2018-08-12 05:00 | disposition home or self-care (01) ==
LOC: JER 18:44
PROC: 3E0337Z Introduction of Electrolytic and Water Balance Substance into Peripheral Vein, Percutaneous Approach (ICD-10-PCS; principal; 2018-08-11)
PROC: 3E033GC Introduction of Other Therapeutic Substance into Peripheral Vein, Percutaneous Approach (ICD-10-PCS; 2018-08-11)
DX: F11.20 Opioid dependence, uncomplicated (principal)
CPT/HCPCS: 36415; 71046-TC-FY; 80053; 93005; 93010; 96361; 96374; 99282-25; J7030

== ENCOUNTER 2018-08-19 08:53 | Inpatient (IN) | payer OTHER ==
[2018-08-19 09:06] VITALS: BMI 24.3
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
[2018-08-19] MEDS ORDERED: P-EPHED 60MG/TRIPROLIDI 2.5MG TABLET PO PRN (09:39)
[2018-08-19] MEDS ORDERED: MAGNESIUM CITRATE 300 ML BOTTLE PO PRN (09:39)
[2018-08-19] MEDS ORDERED: MENTHOL/PHENOL 1 EACH UD MM PRN (09:39)
[2018-08-19] MEDS ORDERED: guaiFENesin/D-METHORPHAN HB 10 ML UNIT-DOSE CUPS PO PRN (09:39)
[2018-08-19] MEDS ORDERED: NICOTINE POLACRILEX 2 MG GUM BUC PRN (09:39)
[2018-08-19] MEDS ORDERED: ACETAMINOPHEN 325 MG TABLET (FP) PO PRN (09:39)
[2018-08-19] MEDS ORDERED: MAGNESIUM HYDROX 2400MG/30ML ORAL SUSPENSION 30 ML CUP PO PRN (09:39)
[2018-08-19] MEDS ORDERED: METHADONE HCL 10 MG TABLET (FOR DETOX USE ONLY) PO ONE ×2 (12:00→23:00)
[2018-08-19] MEDS: diazePAM 5 MG TABLET PO PRN ×2 (12:20→17:27)
[2018-08-19] MEDS: IBUPROFEN 400 MG TABLET (FP) PO PRN (12:20)
[2018-08-19] MEDS: PRENATAL VITAMINS W/ FOLIC ACID TABLET (FP) PO SCH (12:20)
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
[2018-08-19] MEDS: SERTRALINE HCL 50 MG TABLET (FP) PO SCH (15:18)
[2018-08-19] MEDS: buPROPion HCL 100 MG TABLET PO SCH (17:27)
[2018-08-19] MEDS: NICOTINE 21 MG/24 HOURS TOPICAL PATCH TD SCH (18:33)
[2018-08-19] MEDS: QUEtiapine FUMARATE 300 MG TABLET PO SCH ×2 (20:02→22:28)
[2018-08-19] MEDS ORDERED: MELATONIN 5 MG TABLETS PO PRN (22:00)
[2018-08-19] MEDS: THIAMINE HCL 100 MG TABLET (FP) PO SCH (22:28)
[2018-08-20] MEDS: diazePAM 5 MG TABLET PO PRN ×4 (06:34→22:03)
[2018-08-20] MEDS ORDERED: METHADONE HCL 10 MG TABLET (FOR DETOX USE ONLY) PO ONE (10:00)
[2018-08-20] MEDS: buPROPion HCL 100 MG TABLET PO SCH ×2 (10:20→17:39)
[2018-08-20] MEDS: SERTRALINE HCL 50 MG TABLET (FP) PO SCH (10:20)
[2018-08-20] MEDS: PRENATAL VITAMINS W/ FOLIC ACID TABLET (FP) PO SCH (10:20)
[2018-08-20] MEDS: NICOTINE 21 MG/24 HOURS TOPICAL PATCH TD SCH (10:21)
[2018-08-20 10:37] LABS: HEMATOCRIT 41.7 % (35.4-49); HEMOGLOBIN 13.4 GM/dL (11.7-16.9); MCH 22.9 pg (25.7-33.7); MEAN CELL VOLUME 71.6 fl (80-96); MEAN PLT VOLUME 9.5 fl (7.5-11.1); PLATELET COUNT 419 K/MM3 (134-434); RBC 5.83 M/mm3 (4.00-5.60); RDW 16.3 % (11.9-15.9); WHITE BLOOD COUNT 12.3 K/mm3 (4.0-10.0)
[2018-08-20 11:21] LABS: ALBUMIN 4.3 g/dl (3.4-5.0); ALK PHOS 145 U/L (45-117); ANION GAP 9 MMOL/L (8-16); BILIRUBIN,TOTAL 0.5 mg/dL (0.2-1); BLOOD UREA NITROGEN 16 mg/dL (7-18); CALCIUM 9.9 mg/dL (8.5-10.1); CHLORIDE 101 mmol/L (98-107); CO2 26 mmol/L (21-32); CREATININE 0.9 mg/dL (0.55-1.3); GLUCOSE,RANDOM 129 mg/dL (74-106); POTASSIUM 4.6 mmol/L (3.5-5.1); SGOT/AST 43 U/L (15-37); SGPT/ALT 126 U/L (13-61); SODIUM 135 mmol/L (136-145); TOT PROT 9.2 g/dl (6.4-8.2)
--- NOTE | 2018-08-20 11:49 | PN ---
BHS COWS - Scale Resting Pulse: 0= [place] 80 or Below Sweatin= Chills/Flushing Restless Observation: 1= Difficult to Sit Still Pupil Size: 1= Pupils >than Normal Bone or Joint Aches: 1= Mild Discomfort Runny Nose/ Eye Tearin= Nasal Congestion GI Upset > 30mins: 1= Stomach Cramp Tremor Observation of Outstretched Hands: 1= Tremor [place], Not Seen Yawning Observation: 2= >3x During Session Anxiety or Irritability: 1=Feels Anxious/Irritable Goose Flesh Skin: 0=Smooth Skin COWS Score: 10 S Progress Note (SOAP) Subjective: tremor sweating body aches joints pain Objective: 08/20/18 11:52 Vital Signs Temperature 98.6 F 08/20/18 09:15 Pulse Rate 64 08/20/18 09:15 Respiratory Rate 18 08/20/18 09:15 Blood Pressure 106/52 L 08/20/18 09:15 O2 Sat by Pulse Oximetry (%) Laboratory Last Values WBC 12.3 K/mm3 (4.0-10.0) H 08/20/18 06:00 RBC 5.83 M/mm3 (4.00-5.60) H 08/20/18 06:00 Hgb 13.4 GM/dL (11.7-16.9) 08/20/18 06:00 Hct 41.7 % (35.4-49) 08/20/18 06:00 MCV 71.6 fl (80-96) L 08/20/18 06:00 MCH 22.9 pg (25.7-33.7) L 08/20/18 06:00 MCHC 32.0 g/dl (32.0-35.9) 08/20/18 06:00 RDW 16.3 % (11.9-15.9) H 08/20/18 06:00 Plt Count 419 K/MM3 (134-434) D 08/20/18 06:00 MPV 9.5 fl (7.5-11.1) D 08/20/18 06:00 Sodium 135 mmol/L (136-145) L 08/20/18 06:00 Potassium 4.6 mmol/L (3.5-5.1) 08/20/18 06:00 Chloride 101 mmol/L (98-107) 08/20/18 06:00 Carbon Dioxide 26 mmol/L (21-32) 08/20/18 06:00 Anion Gap 9 MMOL/L (8-16) 08/20/18 06:00 BUN 16 mg/dL (7-18) 08/20/18 06:00 Creatinine 0.9 mg/dL (0.55-1.3) 08/20/18 06:00 Creat Clearance w eGFR > 60 (>60) 08/20/18 06:00 Random Glucose 129 mg/dL (74-106) H 08/20/18 06:00 Calcium 9.9 mg/dL (8.5-10.1) 08/20/18 06:00 Total Bilirubin 0.5 mg/dL (0.2-1) 08/20/18 06:00 AST 43 U/L (15-37) H 08/20/18 06:00 ALT 126 U/L (13-61) H 08/20/18 06:00 Alkaline Phosphatase 145 U/L (45-117) H 08/20/18 06:00 Total Protein 9.2 g/dl (6.4-8.2) H 08/20/18 06:00 Albumin 4.3 g/dl (3.4-5.0) 08/20/18 06:00 RPR Titer Nonreactive (NONREACTIVE) 08/20/18 06:00 lab noted Assessment: 08/20/18 11:52 withdrawal sx Plan: continue detox
[2018-08-20] MEDS: IBUPROFEN 400 MG TABLET (FP) PO PRN (13:36)
[2018-08-20] MEDS: THIAMINE HCL 100 MG TABLET (FP) PO SCH (22:02)
[2018-08-20] MEDS: QUEtiapine FUMARATE 300 MG TABLET PO SCH (22:02)
[2018-08-21] MEDS ORDERED: METHADONE HCL 5 MG TABLET (FOR DETOX USE ONLY) PO ONE (10:00)
[2018-08-21] MEDS: diazePAM 5 MG TABLET PO PRN ×3 (10:23→20:16)
[2018-08-21] MEDS: PRENATAL VITAMINS W/ FOLIC ACID TABLET (FP) PO SCH (10:23)
[2018-08-21] MEDS: SERTRALINE HCL 50 MG TABLET (FP) PO SCH (10:23)
[2018-08-21] MEDS: buPROPion HCL 100 MG TABLET PO SCH ×2 (10:24→18:08)
[2018-08-21] MEDS: NICOTINE 21 MG/24 HOURS TOPICAL PATCH TD SCH (10:24)
[2018-08-21] MEDS: hydrOXYzine PAMOATE 50 MG CAPSULE (FP) PO PRN (14:23)
--- NOTE | 2018-08-21 18:18 | PN ---
BHS COWS - Scale Resting Pulse: 0= [place] 80 or Below Sweatin= Chills/Flushing Restless Observation: 1= Difficult to Sit Still Pupil Size: 0= Normal to Room Light Bone or Joint Aches: 2= Severe Diffuse Aches Runny Nose/ Eye Tearin= None GI Upset > 30mins: 1= Stomach Cramp Tremor Observation of Outstretched Hands: 2= Slight Tremor Visible Yawning Observation: 1= 1-2x During Session Anxiety or Irritability: 2=Irritable/Anxious Goose Flesh Skin: 0=Smooth Skin COWS Score: 10 BHS Progress Note (SOAP) Subjective: Sweating, Stomach Cramping, Body Aches, Anxious, Tremors. Objective: PATIENT A & O X 3, OBSERVED AMBULATING ON UNIT. IN NO ACUTE DISTRESS. 08/21/18 18:15 Vital Signs Temperature 96.8 F L 08/21/18 17:12 Pulse Rate 63 08/21/18 17:12 Respiratory Rate 16 08/21/18 17:12 Blood Pressure 123/68 08/21/18 17:12 O2 Sat by Pulse Oximetry (%) Laboratory Tests 08/20/18 08/20/18 08/20/18 06:00 06:00 06:00 WBC 12.3 H RBC 5.83 H Hgb 13.4 Hct 41.7 MCV 71.6 L MCH 22.9 L MCHC 32.0 RDW 16.3 H Plt Count 419 D MPV 9.5 D Sodium 135 L Potassium 4.6 Chloride 101 Carbon Dioxide 26 Anion Gap 9 BUN 16 Creatinine 0.9 Creat Clearance w eGFR > 60 Random Glucose 129 H Calcium 9.9 Total Bilirubin 0.5 AST 43 H ALT 126 H Alkaline Phosphatase 145 H Total Protein 9.2 H Albumin 4.3 RPR Titer Nonreactive LABS NOTED. PATIENT HAS HAD ELEVATED WBC COUNTS ON PREVIOUS ADMISSIONS. 08/21/18 18:19 Assessment: 08/21/18 18:16 WITHDRAWAL SYMPTOMS. LEUKOCYTOSIS. 08/21/18 18:17 Plan: CONTINUE DETOX.
[2018-08-21] MEDS: IBUPROFEN 400 MG TABLET (FP) PO PRN (20:14)
[2018-08-21] MEDS: MAG HYDROX/AL HYDROX/SIMETH 30 ML UNIT-DOSE CUP PO PRN (20:15)
[2018-08-21] MEDS: QUEtiapine FUMARATE 300 MG TABLET PO SCH (21:54)
[2018-08-21] MEDS: THIAMINE HCL 100 MG TABLET (FP) PO SCH (21:54)
[2018-08-22] MEDS: diazePAM 5 MG TABLET PO PRN ×2 (05:40→10:17)
[2018-08-22] MEDS ORDERED: METHADONE HCL 10 MG TABLET (FOR DETOX USE ONLY) PO ONE (10:00)
[2018-08-22] MEDS: PRENATAL VITAMINS W/ FOLIC ACID TABLET (FP) PO SCH (10:17)
[2018-08-22] MEDS: buPROPion HCL 100 MG TABLET PO SCH ×2 (10:18→17:09)
[2018-08-22] MEDS: SERTRALINE HCL 50 MG TABLET (FP) PO SCH (10:18)
[2018-08-22] MEDS: NICOTINE 21 MG/24 HOURS TOPICAL PATCH TD SCH (10:19)
[2018-08-22 10:33] LABS: BASO % 0.7 % (0-2.0); EOS % 2.9 % (0-4.5); HEMATOCRIT 37.3 % (35.4-49); HEMOGLOBIN 11.9 GM/dL (11.7-16.9); LYMPH % 45.7 % (8-40); MCH 22.8 pg (25.7-33.7); MCHC 31.8 g/dl (32.0-35.9); MEAN CELL VOLUME 71.5 fl (80-96); MEAN PLT VOLUME 8.5 fl (7.5-11.1); MONO % 10.8 % (3.8-10.2); NEUT % 39.9 % (42.8-82.8); PLATELET COUNT 292 K/MM3 (134-434); RBC 5.22 M/mm3 (4.00-5.60); RDW 15.8 % (11.9-15.9); WHITE BLOOD COUNT 8.6 K/mm3 (4.0-10.0)
[2018-08-22] MEDS ORDERED: CYCLOBENZAPRINE HCL 10 MG TABLET (FP) PO PRN (12:49)
[2018-08-22] MEDS ORDERED: cloNIDine HCL 0.1 MG TABLET PO ONE (14:00)
[2018-08-22] MEDS: BACITRACIN 0.9 GM PACKET TP SCH (15:13)
--- NOTE | 2018-08-22 15:54 | PN ---
S Progress Note (SOAP) Subjective: Body Aches, Sweating, Anxious. Objective: PATIENT A & O X 3, OBSERVED AMBULATING ON UNIT. IN NO ACUTE DISTRESS. TRACK HYDE NOTED ON BILATERAL FOREARMS. NO ERYTHEMA, SWELLING, OR UNUSUAL DISCHARGE NOTED AT AFFECTED WOUND SITES. 08/22/18 15:48 Vital Signs Temperature 96.5 F L 08/22/18 13:58 Pulse Rate 75 08/22/18 13:58 Respiratory Rate 18 08/22/18 13:58 Blood Pressure 122/74 08/22/18 13:58 O2 Sat by Pulse Oximetry (%) Laboratory Tests 08/20/18 08/20/18 08/20/18 06:00 06:00 06:00 WBC 12.3 H RBC 5.83 H Hgb 13.4 Hct 41.7 MCV 71.6 L MCH 22.9 L MCHC 32.0 RDW 16.3 H Plt Count 419 D MPV 9.5 D Absolute Neuts (auto) Neutrophils % Lymphocytes % Monocytes % Eosinophils % Basophils % Nucleated RBC % Sodium 135 L Potassium 4.6 Chloride 101 Carbon Dioxide 26 Anion Gap 9 BUN 16 Creatinine 0.9 Creat Clearance w eGFR > 60 Random Glucose 129 H Calcium 9.9 Total Bilirubin 0.5 AST 43 H ALT 126 H Alkaline Phosphatase 145 H Total Protein 9.2 H Albumin 4.3 RPR Titer Nonreactive 08/22/18 08:00 WBC 8.6 RBC 5.22 Hgb 11.9 Hct 37.3 MCV 71.5 L MCH 22.8 L MCHC 31.8 L RDW 15.8 Plt Count 292 D MPV 8.5 D Absolute Neuts (auto) 3.4 Neutrophils % 39.9 L Lymphocytes % 45.7 H Monocytes % 10.8 H Eosinophils % 2.9 Basophils % 0.7 Nucleated RBC % 0 Sodium Potassium Chloride Carbon Dioxide Anion Gap BUN Creatinine Creat Clearance w eGFR Random Glucose Calcium Total Bilirubin AST ALT Alkaline Phosphatase Total Protein Albumin RPR Titer LABS NOTED. RESULTS OF REPEAT CBC NOTED. WBC LEVEL NOW NOTED TO BE WITHIN NORMAL RANGE. 08/22/18 15:49 Assessment: 08/22/18 15:50 WITHDRAWAL SYMPTOMS. Plan: CONTINUE DETOX. DURING TODAY'S DAILY AM ROUNDS ASSESSMENT, PATIENT REPORTS CHRONIC WOUND ON HEEL OF LEFT ANKLE (BASE OF ACHILLES TENDON AREA). SCABBING WOUND NOTED ON HEEL. NO SURROUNDING ERYTHEMA OR SWELLING OR UNUSUAL DISCHARGE NOTED AT SITE. DAILY WOUND CARE WITH BACITRACIN AND GAUZE ORDERED. PATIENT ADVISED TO GENTLY CLEAN WOUND WITH SOAP AND WATER ON A DAILY BASIS. PATIENT ADVISED TO FOLLOW-UP WITH [facility] DR. Karly ABDI ([place], [place]) AFTER DISCHARGE FROM DETOX UNIT FOR FURTHER EVALUATION OF WOUND. PATIENT VERBALIZED UNDERSTANDING OF ALL RECOMMENDATIONS.
[2018-08-22] MEDS: MAG HYDROX/AL HYDROX/SIMETH 30 ML UNIT-DOSE CUP PO PRN (20:07)
[2018-08-22] MEDS: THIAMINE HCL 100 MG TABLET (FP) PO SCH (22:33)
[2018-08-22] MEDS: QUEtiapine FUMARATE 300 MG TABLET PO SCH (22:33)
[2018-08-22] MEDS: hydrOXYzine PAMOATE 50 MG CAPSULE (FP) PO PRN (22:34)
[2018-08-23] MEDS ORDERED: METHADONE HCL 5 MG TABLET (FOR DETOX USE ONLY) PO ONE (06:00)
--- NOTE | 2018-08-23 08:53 | DS ---
[facility] Detox Discharge Summary Admission Date: 08/19/18 Discharge Date: 08/23/18 - History Present History: Opioid Dependence Additional Comments: 52 years old male admitted on 08/19/18 for opiate withdrawal stabilization completed detox regimen aftercare [facility] rehab Pertinent Past History: patient requests valium prescription for sleep tonight that he is going to [facility] teaching on risks of valium and negative consequences of benzo - Physical Exam Results Vital Signs: Vital Signs Temperature 97.6 F 08/23/18 06:23 Pulse Rate 57 L 08/23/18 06:23 Respiratory Rate 16 08/23/18 06:23 Blood Pressure 112/66 08/23/18 06:23 O2 Sat by Pulse Oximetry (%) Pertinent Admission Physical Exam Findings: opiate withdrawal sx Laboratory Last Values WBC 8.6 K/mm3 (4.0-10.0) 08/22/18 08:00 RBC 5.22 M/mm3 (4.00-5.60) 08/22/18 08:00 Hgb 11.9 GM/dL (11.7-16.9) 08/22/18 08:00 Hct 37.3 % (35.4-49) 08/22/18 08:00 MCV 71.5 fl (80-96) L 08/22/18 08:00 MCH 22.8 pg (25.7-33.7) L 08/22/18 08:00 MCHC 31.8 g/dl (32.0-35.9) L 08/22/18 08:00 RDW 15.8 % (11.9-15.9) 08/22/18 08:00 Plt Count 292 K/MM3 (134-434) D 08/22/18 08:00 MPV 8.5 fl (7.5-11.1) D 08/22/18 08:00 Absolute Neuts (auto) 3.4 K/mm3 (1.5-8.0) 08/22/18 08:00 Neutrophils % 39.9 % (42.8-82.8) L 08/22/18 08:00 Lymphocytes % 45.7 % (8-40) H 08/22/18 08:00 Monocytes % 10.8 % (3.8-10.2) H 08/22/18 08:00 Eosinophils % 2.9 % (0-4.5) 08/22/18 08:00 Basophils % 0.7 % (0-2.0) 08/22/18 08:00 Nucleated RBC % 0 % (0-0) 08/22/18 08:00 Sodium 135 mmol/L (136-145) L 08/20/18 06:00 Potassium 4.6 mmol/L (3.5-5.1) 08/20/18 06:00 Chloride 101 mmol/L (98-107) 08/20/18 06:00 Carbon Dioxide 26 mmol/L (21-32) 08/20/18 06:00 Anion Gap 9 MMOL/L (8-16) 08/20/18 06:00 BUN 16 mg/dL (7-18) 08/20/18 06:00 Creatinine 0.9 mg/dL (0.55-1.3) 08/20/18 06:00 Creat Clearance w eGFR > 60 (>60) 08/20/18 06:00 Random Glucose 129 mg/dL (74-106) H 08/20/18 06:00 Calcium 9.9 mg/dL (8.5-10.1) 08/20/18 06:00 Total Bilirubin 0.5 mg/dL (0.2-1) 08/20/18 06:00 AST 43 U/L (15-37) H 08/20/18 06:00 ALT 126 U/L (13-61) H 08/20/18 06:00 Alkaline Phosphatase 145 U/L (45-117) H 08/20/18 06:00 Total Protein 9.2 g/dl (6.4-8.2) H 08/20/18 06:00 Albumin 4.3 g/dl (3.4-5.0) 08/20/18 06:00 RPR Titer Nonreactive (NONREACTIVE) 08/20/18 06:00 lab noted - Treatment Hospital Course: Detox Protocol Followed, Detoxed Safely, Responded well, Discharged Condition Good, Rehab Referral Accepted Patient has Accepted a Rehab Referral to: [facility] - Medication Discharge Medications: Ambulatory Orders Alprazolam [Xanax] 1 mg PO TID 04/13/18 Quetiapine Fumarate [Seroquel] 300 mg PO HS 04/13/18 Gabapentin [Neurontin -] 100 mg PO BID 08/19/18 - Diagnosis (1) Substance induced mood disorder Current Visit: Yes Status: Suspected (2) Opioid dependence with withdrawal Current Visit: Yes Status: Acute (3) Nicotine dependence Current Visit: Yes Status: Acute Qualifiers: Nicotine product type: cigarettes Substance use status: in withdrawal Qualified Code(s): F17.213 - Nicotine dependence, cigarettes, with withdrawal - AMA Did Patient Leave Against Medical Advice: No
[2018-08-23 09:39] VITALS: BP 124/69; PULSE 61; TEMP 96.2
[2018-08-23] MEDS: SERTRALINE HCL 50 MG TABLET (FP) PO SCH (09:49)
[2018-08-23] MEDS: buPROPion HCL 100 MG TABLET PO SCH (09:50)
[2018-08-23] MEDS: BACITRACIN 0.9 GM PACKET TP SCH (09:50)
[2018-08-23] MEDS: PRENATAL VITAMINS W/ FOLIC ACID TABLET (FP) PO SCH (09:50)
[2018-08-23] MEDS: NICOTINE 21 MG/24 HOURS TOPICAL PATCH TD SCH (10:38)
== END 2018-08-23 10:10 | disposition home or self-care (01) | DRG 773 ==
LOC: YASAS 08:53 → Y3N 11:27
PROVIDERS: ADMIT Neuromusculoskeletal Medicine & OMM; ATTEND Neuromusculoskeletal Medicine & OMM
PROC: HZ2ZZZZ Detoxification Services for Substance Abuse Treatment (ICD-10-PCS; principal; 2018-08-19)
DX: F11.23 Opioid dependence with withdrawal (principal); F17.213 Nicotine dependence, cigarettes, with withdrawal; F19.24 Other psychoactive substance dependence with psychoactive substance-induced mood disorder; F19.282 Other psychoactive substance dependence with psychoactive substance-induced sleep disorder; F43.10 Post-traumatic stress disorder, unspecified; F33.1 Major depressive disorder, recurrent, moderate; D72.829 Elevated white blood cell count, unspecified; L90.5 Scar conditions and fibrosis of skin
CPT/HCPCS: 36415; 80053; 85025; 85027; 86593; J0735